=== PATIENT | male | born 1945 | race Caucasian/White ===

== ENCOUNTER 2020-09-13 12:24 | Outpatient (REF) | payer OTHER, SELFPAY ==
--- NOTE | ~2020-09-13 | XR_ITS ---
EXAMINATION: XR PELVIS CLINICAL INFORMATION: Hip pain COMPARISON: 09/11/2019 TECHNIQUE: AP view of the pelvis. FINDINGS: Bilateral total hip arthroplasties are present. The femoral head components articulate appropriately with the acetabular components. 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 Lucency along the superior aspect of the right acetabular component is unchanged. No additional new periprosthetic lucency or fracture. The pubic symphysis and sacroiliac joints are appropriately aligned. Degenerative changes of the lower lumbar spine. The bowel gas pattern is unremarkable. 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
== END 2020-09-13 12:25 | disposition home or self-care (01) ==
LOC: HO.HOSX 12:24
PROVIDERS: Visit Provider Orthopaedic Surgery
DX: Z96.641 Presence of right artificial hip joint (principal)
CPT/HCPCS: 72170; 99212